=== PATIENT | female | born 1985 | race Caucasian/White ===

== ENCOUNTER 2023-02-02 14:06 | Outpatient (AMB) | payer OTHER, SELFPAY ==
--- NOTE | 2023-02-02 14:28 | HO.SPINEOV ---
Intake Intake Visit Reasons: Low back pain Intake Note: Ms. Juan is here today c/o recurrent low back pain. (previous pt.) MRI done @ [facility]. Autism Motor Specialist Required: No Assessment & Plan Assessment & Plan (1) Lumbar back pain with radiculopathy affecting left lower extremity: Code(s): M54.16 - Radiculopathy, lumbar region Plan: Dear colleague Thank you for referring Kathryn Man to the office today with a chief complaint of left-sided back pain radiating down her left leg. HPI: This 37-year-old female who has an extensive spinal history. She underwent 2 microdiskectomies followed by a transforaminal lumbar interbody fusion on 08/23/2018 for recurrent herniated discs and left lumbar radiculopathy. She was doing very well but developed progressive left-sided back pain towards the left leg during her . Currently, she has a constant left-sided low back pain with episodes of unprovoked aggravated symptoms. The pain radiates to the posterior thigh calf and into her foot. The right side is unaffected. She also noticed swelling of her left foot. She denies weakness. Chiropractic therapy will alleviate the symptoms for short period of time PMH: Unremarkable Medications: Topiramate, Prozac, multivitamins Allergies: Penicillin Social history: , works from home. Nonsmoker Physical Exam: Pleasant female in distress due to her current situation. Straight leg raise produces pain on the left side of her back. Motor exam is unremarkable. Sensory exam shows no deficits. On inspection of the bilateral feet there is mild swelling of the left foot. Radiological Studies: MRI done at [facility] on 01/20/2023 show status post L4-5 lumbar fusion. Slightly progressive adjacent degenerative disc disease with moderate spinal stenosis and a stable L5-S1 central disc bulge touching the left S1 nerve root. Impression/Plan: This patient is suffering from predominantly left-sided back pain radiating in an S1 distribution into the left leg. I will refer her to for a left S1 diagnostic nerve block. If this alleviates her symptoms then I would propose to do a decompression of the left S1 nerve root. If the injection is negative, then I would like further testing in the form of a CT of the lumbar spine to assess her previous fusion and dynamic x-rays to exclude instability of the L3-4 level. Thank you for allowing me to participate in your patients care. total time spent was 50 minutes in counseling ,coordination of plan, personal review of imaging, surgical decision making and subsequent plan Rakan Lange MD, PhD Spine Fellowship Trained Neurosurgeon Director, [facility] Orders: Referrals Physiatry Referral M54.16 - Radiculopathy, lumbar region Coding Level of Care Code New Pt Level 4 (54577) Diagnoses Lumbar back pain with radiculopathy affecting left lower extremity M54.16
== END 2023-02-02 15:25 | disposition home or self-care (01) ==
PROVIDERS: PCP Internal Medicine; Visit Provider Neurological Surgery
DX: M54.16 Radiculopathy, lumbar region (principal)
CPT/HCPCS: 99204

== ENCOUNTER → 2023-02-02 14:06 | Outpatient (BNVA) | payer OTHER, SELFPAY | PROVIDERS: PCP Internal Medicine; Visit Provider Neurological Surgery | DX: M54.16 Radiculopathy, lumbar region (principal) | CPT/HCPCS: 99202 ==

== ENCOUNTER 2024-10-31 15:45 | Outpatient (AMB) | payer OTHER, SELFPAY ==
--- OUTSIDE RECORDS SUMMARY | 2024-07-05 06:00 | XMS_ITS ---
Author Organization [facility] Address [address] [address] Care Team Providers Care Retail Sales Merchandiser Development Name Role Phone ARMIDA SANCHEZ Unavailable [phone] REASON FOR VISIT Annual CEO Physical Encounters Encounter Location Date Provider Diagnosis [address] [address] 07/05/2024 ARMIDA SANCHEZ Encounter for gynecological examination [...] Follow Up: 1 Year, Reason: Y early Handle Sewer Exam Progress Notes * YANI BROOB:0 1985 (38 yo F)Acc No.[id number]:07/05/2024 Progress Note Patient: KATHRYN ESPARZA Provider: Amanda SANCHEZ MD :1985 A ge:38 Y S ex:Female Date:07/05/2024 Address:[address] [place] [address] Yashira Bosch [id number] Subjective: * Chief Complaints: * 1 . Annual CEO Physical. * HPI: C onstitutional: Kathryn is a 38yo GxPx with LMP x/x/x who presents for her yearly chip person annual exam. She is new to this practice, having received previous chip person care . She has been in state [...] days/week by . * ROS: A nnual Handle Sewer Exam ROS: Bowel habit changes d enies. [...] i n no acute distress,well developed, well nourished,rivet passer present in room. HEAD: n ormocephalic, atraumatic. [...] * Follow Up: 1 Year (Reason: Yearly Handle Sewer Exam) * Images: Billing Information: * Visit Code: 31710 Preventive Care New Pt. Age 18-39. * Procedure Codes: * Electronic signature of ARMIDA SANCHEZ MD on 10/31/2024 at 04:53 PM EDT Sign off status: Pending * Provider: Amanda SANCHEZ MD Date: 07/05/2024 Generated for Dre victor/Yamile/Vandanaitting on: 0 10/31/2024 04:53 PM EDT History and Physical Notes * HPI (History of Present Illness) Category Sub-Category Detail Notes Category Not es Constitutional Kathryn is a 38yo GxPx with LMP x/x/x who presents for her yearly chip person annual exam. She is new to this practice, having received previous chip person care . She has been in state [...] ac mendy distress, well developed, well nourished, rivet passer present in room HEAD: normocephalic, atrau matic [...]
--- NOTE | 2024-10-31 15:55 | MHC.OFFVIS ---
Intake Visit Reasons: 6 Months/ Migrane Allergies Penicillins Allergy (Unknown, Verified 10/24/24 08:36) Unknown HPI Comments Details: The patient is a 38-year-old female presenting with migraine and menstrual migraine. She reports experiencing persistent migraines for at least two weeks each month, noting variability in intensity. Currently on Topamax, the patient describes partial relief, while certain medications like sumatriptan have intensified symptoms. Menstrual migraines have been a significant concern, compounded by hormonal changes leading to night sweats and mood fluctuations. Caffeine provides partial symptomatic relief for her headaches. Historical treatments, including various injections, weren't clearly effective and specifics were not provided. The patient remains hopeful for future symptom improvement with different management strategies. [facility] Medical History (Updated 10/31/24 @ 15:57 by Nilda Kaplan MD) Carpal tunnel syndrome Carpal tunnel syndrome, bilateral upper limbs Migraine without aura Review of Systems Const Details: - Neurological: Reports frequent migraines and menstrual migraines; denies efficacy of certain triptans. - Endocrine: Reports night sweats and hot flashes. - Psychiatric: Reports mood swings. - Others: Denies any other symptoms that were not mentioned in the conversation. Physical Exam Neuro Other: Mental Status: Alert and oriented to person, place, and time. Normal attention. Normal spontaneous speech, fluency, and comprehension. No obvious issues with mood and memory. Affect is appropriate. Cranial Nerves: CN II: Visual almendarez full to confrontation, visual acuity intact. CN III, IV, : Pupils equal, round, reactive to light and accommodation. Extraocular movements are normal. CN V: Facial sensation is normal. CN VII: Facial movements symmetrical. CN VIII: Hearing intact to bedside conversation is normal. CN IX, X: Palate elevates symmetrically. CN XI: Shoulder shrug and head turn symmetrical. CN XII: Tongue midline without atrophy or fasciculations. Extrapyramidal: Full facial expressions and blinking. No rigidity. Movements are appropriate with no tremor or abnormality. Speech: Normal; no dysarthria or tremor. Assessment & Plan Assessment & Plan (1) Chronic migraine w/o aura w/o status migrainosus, not intractable: Comment: Meds tried: Topamax, Amitriptyline. Naratriptan, Sumatriptan, Propranolol and Verapamil cannot be given due to low BP, gabapentin, MRI LS spine at [facility] in Dec 2018: mild L5/S1 central disc bulge with mild left foraminal stenosis, s/p hardware. Code(s): G43.709 - Chronic migraine without aura, not intractable, without status migrainosus Category: Medical Plan: I discussed with the patient the likely diagnoses of migraine and menstrual migraine, emphasizing management strategies. The option of Nurtec for acute management was highlighted because of its low side effect risk. The patient's history of adverse responses to sumatriptan and eletriptan informed the avoidance of these in future treatment plans. We discussed hormonal influences aggravating menstrual migraines and acknowledged past ineffective treatments for her associated symptoms. The benefits of potential new management approaches, including the introduction of a headache clinic helmed by a specialist, were considered a suitable future step. Plan Impression: a: Migraine without aura b: Menstrual migraine Rec: a: Topiramate 200mg one at night b: Fiorecet 1-2 prn c: Try Nurtec 75mg one a day as needed Medications: New topiramate 200 mg PO DAILY 90 tabs 1RF rimegepant (Nurtec ODT) 75 mg PO ONCE 10 tabs 0RF Coding Level of Care Code Est Pt Level 4 (85561) Diagnoses Chronic migraine w/o aura w/o status migrainosus, not intractable G43.709
--- OUTSIDE RECORDS SUMMARY | 2024-10-31 16:53 | XMS_ITS | Clinical Summary ---
Author Organization [facility] Address [address] [place] [address] Care Team Providers Care Adult Basic Education Instructor Name Role Phone Jose M Ervin Primary Care Provider Smiley vailable Social History Tobacco Use Types Packs/Day Years Used Date Smoking Tobacco: Never Assessed Sex and Gender Information Value Date Recorded Sex Assigned at Not on file Gender Identity Not on file Sexual Orientation Not on file Plan of Treatment Health Maintenance Due Date Last Done Comments Hepatitis B Vaccines (1 of 3 - 3-dose series) 1985 Hepatitis C Screening 1985 COVID-19 Vaccine (#1) 05/04/1986 Depression Screening 1997 Preventative Health Evaluation 11/05/2003 Cervical Cancer Screening (Pap Smear) 2006 DTap / Tdap / Td (2 - Td or Tdap) 12/17/2020 12/17/2010 Influenza Vaccine (#1) 2024 3, 04/27/2010 Pneumococcal Vaccine Aged Out No long er eligible based on patient's age to complete this topic RSV Ped < 20 months Aged Out No longe r eligible based on patient's age to complete this topic Care Teams Adult Basic Education Instructor Relationship Specialty Start Date End Date Jose M Ervin PCP - General Internal Medicine 02/14/18
--- OUTSIDE RECORDS SUMMARY | 2024-10-31 16:53 | XMS_ITS | Clinical Summary ---
Author Organization [facility] Address [address] [place] [address] Care Team Providers Care Rn Production Name Role Phone Unavailable Primary Care Provider Unavailabl e Allergies Active Allergy Reactions Criticality Noted Date Comments Penicillins Swelling High 04/24/2010 Medications biotin 1 mg capsule Take by mouth. Activ e black cohosh 540 mg capsule Take by mouth. Active estradioL (ESTRACE) 0.01 % (0.1 mg/gram) vaginal cream Apply pv daily then twice wkly for maintenance Active cetirizine HCl (CETIRIZINE ORAL) Take by mouth. Activ e IBUPROFEN ORAL Take 400 mg by mouth daily as needed. Active levonorgestreL (Mirena) 21 mcg/24hr (up to 8 yrs) 52 mg IUD by Intrauterine route. Active multivitamin with minerals (CENTRUM/CERTAV IT) 18-400 mg-mcg tablet tablet Take 1 Tablet by mouth daily. Active topiramate (TOPAMAX) 100 mg tablet Take 1 tablet (100 mg total) by mouth 2 (two) times a day. Active tramadol HCl (TRAMADOL ORAL) Take 10 mg by mouth 2 times daily. Active estradioL (ESTRACE) 1 mg tabletIndicatio ns:Menopausal and female climacteric states TAKE 1 TABLET BY MOUTH EVERY DAY 90 tablet 5 Active estradioL (ESTRACE) 2 mg tablet Take 1 tablet (2 mg total) by mouth 1 (one) time each day. 90 tablet 3 5 08/03/19 26 Active sertraline (ZOLOFT) 50 mg tablet TAKE 1 TABLET BY MOUTH EVERY DAY 90 tablet 3 5 Active Active Problems Problem Noted Date Diagnosed Date AMA (advanced maternal age) multigravida 35+ Overview (05/07/2024): [place] neg Level 2 US (>35) Weekly BPP at 36 weeks Delivery at 39 weeks >/= 35 yo Lumbar herniated disc 10/21/2020 Overview (05/07/2024): L5-S1 COVID-19 virus infection 02/11/2020 Vertigo 10/12/2016 Piriformis syndrome of left side 04/05/2016 Elevated AFP 02/12/2016 Overview (05/07/2024): Growth q 4-6 weeks Weekly NST or BPP weekly at 32-34 weeks Deliver at 39 Lumbosacral ligament sprain 02/03/2016 Lumbosacral root lesion 02/03/2016 Overview (05/07/2024): 2019 Lumbar spine fusion surgery, status post 2/3 anesthesia consult - RECOMMEND SCHEDULED DELIVERY (MD Michelle)- still can do spinal per anesthesia- being scheduled. 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 Colles' fracture 06/06/2013 Migraine 04/25/2012 Thyroid nodule 08/17/2010 Overview (05/07/2024): TSH ordered in 1st trimeter Tsh orderd 2nd trim 01/13/16 Encounters Date Type Department Care Team Description 08/13/2024 7:23 AM EDT - 08/13/2024 11:59 PM EDT [facility] at [address] [address] Encounter for screening mammogram for high-risk patient Discharge Disposition: Home or Self Care 08/03/2024 Telephone Obstetrics and Gynecology [place] [address] [place] [address] Sendy Tidwell, SOSA 08/02/2024 3:00 PM EDT Office Visit Obstetrics and Gynecology [address] [address] Sendy Tidwell CNM Women's annual routine gynecological examination (Primary Dx); Venereal disease screening; Encounter for screening for viral disease; Hot flashes; IUD check up from Last 3 Months Immunizations Name Administration Dates Next Due Influenza Quadravalent, MDCK , 0.5ml, preservative free (Flucelvax) 6mo and older 11/19/2020 Influenza trivalent, 0.5mL, preservative free (Fluarix; FluLaval; Fluzone) ages 6mo and older (Afluria) 3 years and older 12/15/2015,12/02/2012,04/27/2010 Influenza, Unspecified 11/11/2016,11/28/2013 Pfizer SARS-CoV-2 COVID-19, mRNA, LNP-S, preservative free 02/15/2021,07/15/2020,06/24/2020 Tdap Tetanus diptheria acell ular pertussis (Boostrix; Adacel) 7yo and older 12/17/2010 Surgical History Surgery Date Site/Laterality Comments OTHER SURGICAL HISTORY PROCEDURE: MI TONSILLECTOMY & ADENOIDECTOMY AGE 12/> BREAST LUMPECTOMY 12/23/14 Right PROCEDURE: HISTORICAL BREAST LUMPECTOMY; COMMENT: fibroadenoma OTHER SURGICAL HISTORY 02/24/2018 PROCEDURE: [place] LAMOT PRTL FFD EXC DISC REEXPL 1 NTRSPC LUMBAR; COMMENT: lumbar laminotomy and microdiskectomy LUMBAR LAMINECTOMY 05/2018 PROCEDURE: HISTORICAL LUMB LAMINECTOMY; COMMENT: lumbar laminotomy and disckectomy Medical History Medical History Date Comments Thyroid nodule 08/17/2010 DX:Thyroid nodul e Lumbar herniated disc 10/21/2020 DX:Lumbar herniated disc; COMMENT: L5-S1 DVT (deep vein thrombosis) i n 2016 DX:DVT (deep vein thrombosis ) in Migraine with aura DX:Migraine w ith aura Family History Medical History Relation Name Comments Other: smoker Father Heart attack Maternal Grandfather Diabetes Maternal Grandmother Other: foot problems Mother Blindness Neg Hx Breast cancer Neg Hx Cataracts Neg Hx Colon cancer Neg Hx Glaucoma Neg Hx Macular degeneration Neg Hx Strabismus Neg Hx Relation Name Status Comments Father Maternal Grandfather Maternal Grandmother Mother Social History Tobacco Use Types Packs/Day Years Used Date Smoking Tobacco: Former Cigarettes Q uit: 03/27/2012 Smokeless Tobacco: Never Alcohol Use Standard Drinks/Week Comments Not Currently 0 (1 standard drink = 0.6 oz pur e alcohol) Housing Instability Answer Date Recorde d Are you worried that in the next 2 months you may not have stable housing? No 08/02/2024 Food Access & Nutrition Answer Date Rec orded Do you have access to a vari ety of food including fruits and vegetables? Yes 08/02/2024 Access to Healthcare Answer Date Record ed Within the last 3 months, ho w many times did you visit the emergency department for your medical care? 0 08/02/2024 Health Literacy Answer Date Recorded How often do you need to hav e someone help you when you read instructions, pamphlets, or other written material from your doctor or pharmacy? Never 08/02/2024 Caregiver: How often do you need to have someone help you when you read instructions, pamphlets, or other written material from your doctor or pharmacy? Not on file 08/02/2024 Financial Risk Answer Date Recorded How hard is it for you to pa y for the very basics like food, housing, medical care, and air conditioning / heating? Patient declined 08/02/2024 Transportation Answer Date Recorded Has the lack of transportati on kept you from meetings, work, or from getting things needed for daily living? No Has the lack of transportati on kept you from medical appointments or from getting medications? No 08/02/2024 Social Isolation Answer Date Recorded How often do you feel lonely or isolated from those around you? Sometimes 08/02/2024 Food Risk Answer Date Recorded Within the past 12 months we worried whether our food would run out before we got money to buy more. Patient declined 025 Within the past 12 months th e food we bought just didn't last and we didn't have money to get more. Patient declined 07/06 Dependent Care Answer Date Recorded Do you need help finding or paying for care for your loved ones. For example, child welfare worker or elderly care for an older adult? No 08/02/2024 Education Answer Date Recorded Do you think completing more education or training, like finishing a GED, going to college, or learning a trade, would be helpful for you? N/A 08/02/2024 Employment and Income Answer Date Recor ded During the last four weeks, have you been actively looking for work? Patient declined 08/02/2024 Living Situation Answer Date Recorded What is your living situation? 0 08/02/2024 Comments No Sex and Gender Information Value Date Recorded Sex Assigned at Female 11/28/2019 8:42 AM EDT Legal Sex Female 8:32 AM EDT Gender Identity Female 11/28/2019 8:42 AM EDT Sexual Orientation Not on file Obstetrics History Para Term AB IAB SAB Ectopic Multiple Livin g Live Births 3 3 3 2 3 Date Outcome GA Total Labor Labor/2nd/3rd Weight Sex Type Anes PTL Elisabet A1 A5 Name Clin 2010 Term 40w 6d 6h 50m/ 3771 g (133 oz) M Vag-S pont Epidur al Livin g 8 9 Caroly n Delivery Location:[facility] Comments:bilat labial lacereation, cord x1 loose 2016 Term 38w 3d 3771 g (133 oz) Sudha Complications:Deep vein thro mbosis (DVT), antepartum Delivery Location:[facility] Comments:System Genera suzan. Please review and update details. 2021 Term 39w 1d 4350 g (153.4 oz) M CS-LT ranv Livin g Dr Avila iner Comments:pcs- due to s sebastian fusion history Last Filed Vital Signs Vital Sign Reading Time Taken Comments Blood Pressure 102/70 08/02/2024 2:55 PM EDT Pulse 65 08/02/2024 2:55 PM EDT Temperature - - Respiratory Rate - - Oxygen Saturation - - Inhaled Oxygen Concentration - - Weight 104 kg (229 lb) 08/13/2024 7:35 AM EDT Height 165.1 cm (5' 5 ) 08/13/2024 7:35 AM EDT Body Mass Index 38.11 08/13/2024 7:35 AM EDT Plan of Treatment Health Maintenance Due Date Last Done Comments Hepatitis B Vaccines (1 of 3 - 19+ 3-dose series) 2004 Pneumococcal Vaccine: Pediatrics (0 to 5 Years) and At-Risk Patients (6 to 49 Years) (2 of 2 - PCV) 11/14/2013 11/14/2012 COVID-19 Vaccine (5 - Pfizer risk season) 2024 12/08/2023, 02/15/2021, 07/15/2020, Additional history exists Influenza Vaccine (#1) 2024 , 11/23/2022, 12/07/2021, Additional history exists Cervical Cancer Screening: HPV 04/10/2025 04/10/2020 Social Influencers of Health Screening 08/02/2025 08/02/2024 DTaP,Tdap,and Td Vaccines (3 - Td or Tdap) 11/06/2028 11/06/2018, 12/17/2010 Depression Screening Completed 08/02/2024, 07/16/19 24 HIV Screening Completed 08/02/2024, 10/21/2020 Hepatitis C Screening Completed 08/02/2024, 021 HIB Vaccines Aged Out No longer eligi ble based on patient's age to complete this topic HPV Vaccines Aged Out No longer eligi ble based on patient's age to complete this topic Hepatitis A Vaccines Aged Out No long er eligible based on patient's age to complete this topic IPV Vaccines Aged Out No longer eligi ble based on patient's age to complete this topic MMR Vaccines Aged Out No longer eligi ble based on patient's age to complete this topic Meningococcal ACWY Vaccine Aged Out N o longer eligible based on patient's age to complete this topic Meningococcal B Vaccine Aged Out No l onger eligible based on patient's age to complete this topic RSV Immunization Patients Under 20 months Aged Out No longer eligible based on patient's age to complete this topic Varicella Vaccines Aged Out No longer eligible based on patient's age to complete this topic Procedures Procedure Name Priority Date/Time Associated Diagnosis Comments MG MAMMO DIGITAL SCREENING W [place] BILAT Routine 08/13/2024 7:43 AM EDT Encounter for screening mammogram for high-risk patient TREPONEMA PALLIDUM ANTIBODY WITH REFLEX TO RPR AND PARTICLE AGGLUTINATION Routine 08/02/2024 3:28 PM EDT Venereal disease screening HIV 1, 2 ANTIBODY, P24 ANTIGEN WITH REFLEX TO DIFFERENTIATION Routine 08/02/2024 3:28 PM EDT Encounter for screening for viral disease HEPATITIS C ANTIBODY Routine 08/02/2024 3:28 PM EDT Encounter for screening for viral disease CHLAMYDIA TRACHOMATIS AND NEISSERIA GONORRHOEAE PCR Routine 08/02/2024 3:17 PM EDT Venereal disease screening HM DEPRESSION SCREENING Routine 07/16/2023 HM HPV Routine 04/10/2020 from Last 3 Months or Most Recently Relevant to Health Maintenance Results * MG Mammo Digital Screening w [place] bilat (08/13/2024 7:43 AM EDT) Anatomical Region Laterality Modality Breast Bilateral Mammography 08/13/2024 9:04 AM EDT Impressions 08/13/2024 9:53 AM EDT No definite mammographic evidence of malignancy. These initial screening mammogram images can be used as a reference for comparison with subsequent screening in one year. A negative mammogram in the presence of a clinically suspicious palpable abnormality does not preclude the possibility of malignancy or alter the indications for biopsy. ASSESSMENT: BI-RADS 2: BENIGN RECOMMENDATION(S): 1: Routine screening mammogram BILATERAL in 1 year. [facility] location[facility] at [address], [address] -------- FINAL REPORT -------- Dictated By: Hector Nelson Dictated Date: 08/13/2024 09:04 ET Assigned Physician: Hector Nelson Reviewed and Electronically Signed By: Hector Nelson Signed Date: 08/13/2024 09:53 ET Workstation ID: [id number] Transcribed By: Self Edit Transcribed Date: 08/13/2024 09:40 ET Narrative 08/13/2024 9:53 AM EDT EXAM: SCREENING MAMMOGRAPHY, BILATERAL HISTORY: SCREENING. Scar marker lower outer right areolar margin for reported surgery which yielded fibroadenoma December 2014 COMPARISON: Initial exam TECHNIQUE: Synthesized CC and MLO projections of each breast. Tomosynthesis of each breast in the CC and MLO projections. ADDITIONAL IMAGING: None Computer-aided detection was employed with the [employer] Memolane AI 3-D. TISSUE DENSITY: There are scattered areas of fibroglandular density. (BI-RADS category B) FINDINGS: RIGHT BREAST: No suspicious mass. No suspicious calcifications. Findings consistent with prior right breast surgery. These images can be used as a reference for subsequent screening. LEFT BREAST: No suspicious mass. No suspicious calcification. No distortion. No additional suspicious left breast findings Procedure Note Hector Nelson MD - 08/13/2024 EXAM: SCREENING MAMMOGRAPHY, BILATERAL HISTORY: SCREENING. Scar marker lower outer right areolar margin forreported surgery which yielded fibroadenoma December 2014 COMPARISON: Initial exam TECHNIQUE: Synthesized CC and MLO projections of each breast.Tomosynthesis of each breast in the CC and MLO projections. ADDITIONAL IMAGING: None Computer-aided detection was employed with the VM[employer] AI 3-D. TISSUE DENSITY: There are scattered areas of fibroglandular density.(BI-RADS category B) FINDINGS: RIGHT BREAST: No suspicious mass. No suspicious calcifications. Findings consistentwith prior right breast surgery. These images can be used as a referencefor subsequent screening. LEFT BREAST: No suspicious mass. No suspicious calcification. No distortion. Noadditional suspicious left breast findings IMPRESSION: No definite mammographic evidence of malignancy. These initial screening mammogram images can be used as a reference forcomparison with subsequent screening in one year. A negative mammogram in the presence of a clinically suspicious palpableabnormality does not preclude the possibility of malignancy or alter theindications for biopsy. ASSESSMENT: BI-RADS 2: BENIGN RECOMMENDATION(S): 1: Routine screening mammogram BILATERAL in 1 year. [facility] location[facility] at [address], [address] -------- FINAL REPORT -------- Dictated By: Hector Nelson Dictated Date: 08/13/2024 09:04 ET Assigned Physician: Hector Nelson Reviewed and Electronically Signed By: Hector Nelson Signed Date: 08/13/2024 09:53 ET Workstation ID: [id number] Transcribed By: Self Edit Transcribed Date: 08/13/2024 09:40 ET Sendy Tidwell [facility] IMG BI PROCEDURES Final Resul t * Hepatitis C antibody (08/02/2024 3:28 PM EDT) Hepatitis C Antibody Negative Negative LAB CHEMISTRY METHOD 08/02/2024 7:20 PM EDT [facility] Blood Venous blood specimen / Unknown Venipuncture / Unknown 08/02/2024 3:28 PM EDT 08/02/2024 3:31 PM EDT [facility] BLOOD ORDERABLES Final Re sult Performing Organization Address [facility] de Phone Number [facility] [address] [place] [address], [place] [phone] * HIV 1,2 antibody, p24 antigen with reflex to differentiation (08/02/2024 3:28 PM EDT) Pathologist [facility] HIV Combo AB/AG Negative Negative LAB CHEMISTRY METHOD 08/02/2024 8:30 PM EDT [facility] Blood Venous blood specimen / Unknown Venipuncture / Unknown 08/02/2024 3:28 PM EDT 08/02/2024 3:31 PM EDT Narrative [facility] - 08/02/2024 8:30 PM EDT This assay is a 4th generation assay allowing for earlier detection of HIV infection by detecting the presence of the HIV-1 p24 antigen as well as the traditional antibodies to HIV type 1 (including group O) and type 2. Use of a 4th generation assay is the current CDC recommendation for HIV screening. [facility] BLOOD ORDERABLES Final Re sult Performing Organization Address [facility] Co de Phone Number [facility] [address] [place] [address], [place] [phone] * Treponema pallidum antibody with reflex to RPR and particle agglutination (08/02/2024 3:28 PM EDT) [facility] T. Pallidum Antibodies Negative Negative LAB CHEMISTRY METHOD 08/02/2024 9:33 PM EDT [facility] Blood Venous blood specimen / Unknown Venipuncture / Unknown 08/02/2024 3:28 PM EDT 08/02/2024 3:31 PM EDT Sendy RDZ LAB BLOOD ORDERABLES Final Re sult [facility] [address] [place] [address], [place] [phone] * Chlamydia trachomatis and Neisseria gonorrhoeae molecular study (08/02/2024 3:17 PM EDT) [facility] Neisseria gonorrhoeae PCR Negative Negative LAB MOLECULAR DIAGNOSTICS METHOD 08/03/2024 11:33 AM EDT [facility] Chlamydia trachomatis PCR Negative Negative LAB MOLECULAR DIAGNOSTICS METHOD 08/03/2024 11:33 AM EDT [facility] Swab Vaginal structure / Unknown Non-blood Collection / Unknown 08/02/2024 3:17 PM EDT 08/02/2024 3:18 PM EDT Sendy Tidwell [facility] MICROBIOLOGY - GENERAL OR DERABLES Final Result [facility] [address] [place] [address], [place] [phone] * Depression Screening (07/16/2023) Health system Depression Screening abstracted Historical Provider HEALTH MAINTENANCE Final Result * Cervical Cancer Screening: HPV (04/10/2020) Health system Cervical Cancer Screening: HPV negative, abstracted us Historical Provider HEALTH MAINTENANCE Final Result from Last 3 Months or Most Recently Relevant to Health Maintenance Insurance [employer] [place]
--- OUTSIDE RECORDS SUMMARY | 2024-10-31 16:53 | XMS_ITS | Patient Health Record ---
Author Organization [facility] Address [address] [place] [address] Care Team Providers Care Director Of Parks And Recreation Name Role Phone SANCHEZARMIDA CAMPUZANO Unavailable [phone] Reason For Referral No Information Plan Of Treatment No Information Insurance Providers Payer Name Payer Address Payer Phone Subscriber Number Group Number Insured Name Patient Relationship to Insured Coverage Start Date Coverage End Date [facility] [address] [address] [place] [address] IVETH BRO Self - patient is the insured
== END 2024-10-31 16:10 | disposition home or self-care (01) ==
LOC: HO.HSM 15:45
PROVIDERS: PCP Internal Medicine; Referring Provider Internal Medicine; Visit Provider Psychiatry & Neurology Neurology
DX: G43.709 Chronic migraine without aura, not intractable, without status migrainosus (principal)
CPT/HCPCS: 99214

== ENCOUNTER → 2024-10-31 15:45 | Outpatient (BNVA) | payer OTHER, SELFPAY | PROVIDERS: PCP Internal Medicine; Referring Provider Internal Medicine; Visit Provider Psychiatry & Neurology Neurology | DX: G43.709 Chronic migraine without aura, not intractable, without status migrainosus (principal); G43.829 Menstrual migraine, not intractable, without status migrainosus | CPT/HCPCS: 99212 ==

== ENCOUNTER 2025-01-07 12:39 | Outpatient (REF) | payer OTHER, MEDICAID, SELFPAY | END 2025-01-07 12:40 | disposition home or self-care (01) | LOC: HO.LAB 12:39 | PROVIDERS: PCP Internal Medicine; Visit Provider Nurse Practitioner | DX: G43.709 Chronic migraine without aura, not intractable, without status migrainosus (principal); R61 Generalized hyperhidrosis | CPT/HCPCS: 36415; 84443 ==

== ENCOUNTER 2025-01-07 12:39 | Outpatient (AMB) | payer OTHER, MEDICAID, SELFPAY ==
--- OUTSIDE RECORDS SUMMARY | 2024-07-05 05:00 | XMS_ITS ---
Author Organization [facility] Address [address] [address] Care Team Providers Care Forklift Picker Name Role Phone ARMIDA SANCHEZ Unavailable [phone] REASON FOR VISIT Annual ACTIVITY AIDE Physical Encounters Encounter Location Date Provider Diagnosis [address] [address] 07/05/2024 ARMIDA SANCHEZ Encounter for gynecological examination (general) (routine) without abnormal findings Z01.419 and Encounter for screening for infections with a predominantly sexual mode of transmission Z11.3 Assessments Encounter Date Diagnosis (ICD Code) Assessment Notes Treatment Notes Treatment Clinical Notes Section Notes 07/05/2024 Encounter for gynecological examination (general) (routine) without abnormal findings (ICD-10 - Z01.419) During the visit, the following areas of concern were addressed: Discussed cervical cancer screening with either cytology alone every 3 years or high risk HPV co-testing every 5 years as per ASCCP guidelines. Advised continued annual pelvic exams. Patient encouraged to increase her level of exercise. SBE technique encouraged/tau ght. 07/05/2024 Encounter for screening for infections with a predominantly sexual mode of transmission (ICD-10 - Z11.3) Plan Of Treatment Treatment Notes Assessment Notes Encounter for gynecological examination (general) (routine) without abnormal findings During the visit, the following areas of concern were addressed: Discussed cervical cancer screening with either cytology alone every 3 years or high risk HPV co-testing every 5 years as per ASCCP guidelines. Advised continued annual pelvic exams. Patient encouraged to increase her level of exercise. SBE technique encouraged/taught. Next Appt Details Follow Up: 1 Year, Reason: Y early Basin Operator Exam Progress Notes * YANI BROOB:0 1985 (39 yo F)Acc No.[id number]:07/05/2024 Progress Note Patient: KATHRYN ESPARZA Provider: Amanda SANCHEZ MD :1985 A ge:38 Y S ex:Female Date:07/05/2024 Address:[address] [place] [address] Yashira Bosch [id number] Subjective: * Chief Complaints: * 1 . Annual ACTIVITY AIDE Physical. 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 She is new to this practice, having received previous sap data analyst care . She has been in state of health since her last exam. She has the following concerns: . She has received the Covid-19 vaccine. Relationship status: for years. She is sexually active. Sexual partner(s): . She does wish to have STI testing. Menses: Contraception: The patient has had an abnormal pap smear within the last 5 years. Her most recent pap smear was . The patient does exercise. She exercises x days/week by . * ROS: A nnual Basin Operator Exam ROS: Bowel habit changes d enies. B ladder symptoms d enies. V aginal discharge, unusual d enies. V aginal itch or odor d enies. w eight or appetite changes d enies. C hest pains, SOB d enies. d epression d enies.? B reast: Denies B reast lump. D enies N ipple discharge.? H ematology: Denies S wollen glands. S kin: Patient complaining of c hanging moles. P sychiatric: Denies A nxiety. * Medical History: Objective: * Vitals: * Examination: G eneral Examination: GENERAL APPEARANCE: i n no acute distress,well developed, well nourished,charging machine operator present in room. HEAD: n ormocephalic, atraumatic. NECK/THYROID: n feliciano supple, full range of motion,thyroid normal. LYMPH NODES: n o axillary or supraclavicular adenopathy.? SKIN: n ormal,good turgor,no rashes,no suspicious lesions.? BREASTS: n ormal,no dimpling,no discharge,no drainage,no masses palpable bilaterally,nontender. ABDOMEN: s oft, non-tender, non distended without masses or hepatosplenomegay. BACK: n o costovertebral angle tenderness. FEMALE GENITOURINARY: V ulva without lesions or masses, vagina pink without abnormal discharge, lesions or masses, cervix appears normal and is not tender to palpation, uterus is normal size, mobile, nontender and anteverted, ovaries are not palpable. NEUROLOGIC: a lert and oriented,gait normal. PSYCH: a lert, oriented,cognitive function intact,cooperative with exam,good eye contact,mood/affect full range,speech clear. Assessment: * Assessment: 1. E ncounter for gynecological examination (general) (routine) without abnormal findings - Z01.419 (Primary) 2 . E ncounter for screening for infections with a predominantly sexual mode of transmission - Z11.3 Plan: * Treatment: * Follow Up: 1 Year (Reason: Yearly Basin Operator Exam) * Images: Billing Information: * Visit Code: 91737 Preventive Care New Pt. Age 18-39. 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 She is new to this practice, having received previous sap data analyst care . She has been in state of health since her last exam. She has the following concerns: . She has received the Covid-19 vaccine. Relationship status: for years. She is sexually active. Sexual partner(s): . She does wish to have STI testing. Menses: Contraception: The patient has had an abnormal pap smear within the last 5 years. Her most recent pap smear was . The patient does exercise. She exercises x days/week by . Examination Category Sub-Category Detail Notes Category Not es General Examination GENERAL APPEARANCE: in no ac mendy distress, well developed, well nourished, charging machine operator present in room HEAD: normocephalic, atrau matic NECK/THYROID: neck supple, full ra nge of motion, thyroid normal ABDOMEN: soft, non-tender, no n distended without masses or hepatosplenomegay NEUROLOGIC: alert and oriented, gait normal SKIN: normal, good turgor, no rashes, no suspicious lesions BACK: no costovertebral an gle tenderness BREASTS: normal, no dimpling, no discharge, no drainage, no masses palpable bilaterally, nontender LYMPH NODES: no axillary or supra clavicular adenopathy PSYCH: alert, oriented, cog nitive function intact, cooperative with exam, good eye contact, mood/affect full range, speech clear FEMALE GENITOURINARY: Vulva without lesi ons or masses, vagina pink without abnormal discharge, lesions or masses, cervix appears normal and is not tender to palpation, uterus is normal size, mobile, nontender and anteverted, ovaries are not palpable
[2025-01-07 12:49] VITALS: BP 112/70; PULSE 80; RESP 16; O2SAT 99; BMI 36.6
--- NOTE | 2025-01-07 12:49 | A.OFFVIS_ITS ---
Vital Signs 01/07/25 12:49 Height 5 ft 5 in Weight 220 lb BMI 36.6 BP 112/70 Blood Pressure Location Rt brachial Position Sitting Respiration 16 Pulse 80 Pulse Source Pulse Oximeter Pulse Oximetry (%) 99 Oxygen Delivery Method Room Air Intake Visit Reasons: Constant migrane Group Fitness Assistant Department Head Required: No Allergies Penicillins Allergy (Unknown, Verified 01/07/25 12:50) Unknown HPI Comments Details: Kathryn is a 39-year-old female patient presenting today for a follow up visit for migraine and menstrual migraines. According to last office notes from Dr. Kaplan from October of 2024, she was experiencing migraines for at least 2 weeks out of the month and could be relatively persistent for a week or so with variability in intensity. Menstrual migraines were also discussed including night sweats and mood fluctuations. Caffeine was providing some benefit and she was taking topiramate for preventive measures. At time of last visit she was continued on topiramate 200 mg at night and Nurtec 75 mg as needed. She also has a prescription for Fioricet as needed. She tells me today that she feels that her migraines are becoming more and more severe over the course of the last few years. She has profound light and sound sensitivity as well as nausea, blurred vision, and light headedness. They can be very debilitating and can make it nearly impossible to carry out her ADLs. Her migraines are occurring lest 15 days per month and can last up to 4 days in a row. Walking or any activity can severely worsen her headache when she has a migraine. She sometimes sees sparkles in her vision before getting a migraine but also can be during the migraine episode. More recently she has also noted that her scalp even feels tender to touch all over. She has been hydrating well though when her pain is severe she has no desire to eat or drink. Last eye exam: February 2024- no changes in vision since this time Now on HRT for menopause symptoms - Has been on estradiol po for the past 6 months or so and during this time her migraines have worsened, Past medication trials: Topiramate Amitriptyline Gabapentin (Propranolol and verapamil avoided due to low blood pressures) Naratriptan Sumatriptan [facility] Medical History (Updated 01/07/25 @ 13:32 by Marah Ryder CNP) Carpal tunnel syndrome Carpal tunnel syndrome, bilateral upper limbs Migraine without aura Review of Systems Const All systems reviewed & are unremarkable except as noted in HPI and below Physical Exam Vital Signs: Last Vital Signs Pulse 80 01/07/25 12:49 Resp 16 01/07/25 12:49 BP 112/70 01/07/25 12:49 Pulse Ox 99 01/07/25 12:49 Oxygen Delivery Method Room Air 01/07/25 12:49 BMI result Body Mass Index 36.6 Const General: cooperative, healthy appearing, comfortable and no acute distress Nutritional Appearance: well nourished Orientation/consciousness: patient oriented x3 Limitations: no limitations HEENT Head: Yes normal to inspection and Yes normocephalic Eyes General: appearance normal, both eyes and all related structures Visual Almendarez: normal visual almendarez by confrontation Alignment and Position: alignment normal Periorbital: periorbital findings normal Eyelids: Yes eyelids normal Conjunctivae: conjunctivae normal Sclerae: sclerae normal Neuro General: patient oriented x3 Cranial nerves: Yes CN's II-XII intact bilaterally Cognition (Neuro): normal cognition Gait exam (Neuro): Normal gait present Motor exam (neuro): no tremor noted Romberg Test: Negative Pupils: Normal pupillary reactivity/response: bilateral Psych Appearance: grossly normal Mental Status: mental status grossly normal Speech and movement: Normal speech and movement present and Clear speech present Affect: normal affect Attitude: cooperative Thought process: Normal thought process present Thought content: Normal thought content present Insight: Good insight present (Psych) Judgement: Good judgement present (Psych) Assessment & Plan Assessment & Plan (1) Chronic migraine w/o aura w/o status migrainosus, not intractable: Comment: Meds tried: Topamax, Amitriptyline. Naratriptan, Sumatriptan, Propranolol and Verapamil cannot be given due to low BP, gabapentin, MRI [facility] spine at [facility] in Dec 2018: mild L5/S1 central disc bulge with mild left foraminal stenosis, s/p hardware. Code(s): G43.709 - Chronic migraine without aura, not intractable, without status migrainosus Category: Medical (2) Night sweats: Code(s): R61 - Generalized hyperhidrosis Category: Medical Plan Kathryn is a 39-year-old female patient presenting today for a follow up visit for migraine and menstrual migraines. Migraines have recently escalated and she is now experiencing at least 15 migraine days per month or more many of which will last for days several days (up to 4 days) at a time. She has used topiramate in the past with some success however this seemingly has been less effective. I would like to start her on a trial of Emgality once monthly starting with a loading dose of 240 mg and then 120 mg monthly. I did provide her with a trial of Ubrelvy 100 mg in office today provided that she did have an acute headache which started this morning. Unfortunately, we are administering several hours after migraine onset making the above only less likely to be significantly effective. She also notes that she has been having hot flashes for which she has been given estradiol. It is unclear whether or not the estradiol really makes a huge difference and she is also on black cohosh which she feels has not made much of a difference at all. I am concerned that the estradiol maybe escalating her migraines. The patient also notes that she does not have any family history of early onset menopause and she does not believe that she has had her thyroid tested recently. I will send for a TSH level. I also discussed that she should have a formal eye exam though there was no red flags for IIH specifically. She does believe that she has not upcoming eye exam within the next month or so. - Ubrelvy 100mg sample given in office today -she will let me know if this works and if we want to prescribe (1 box with tablet. Lot [id number]. [id number] expiration ) - Start a trial of Emgality - Discuss HRT and its role in migraine at upcoming VENDING SUPERVISOR visit which is scheduled for 01/25/2025 -TSH Orders: Orders TSH reflex Free T4 Today G43.709 - Chronic migraine without aura, not intractable, without status migrainosus, R61 - Generalized hyperhidrosis Medications: New galcanezumab-gnlm (Emgality Pen) Loading dose 240 mg (2 mL) subcut ONCE 2 mL 0RF galcanezumab-gnlm (Emgality Pen) 120 mg subcut QMONTH 1 mL 4RF Discontinued rimegepant (Nurtec ODT) Discontinued Reason: Doctor's Order 75 mg PO ONCE 10 tabs 0RF Coding Level of Care Code Est Pt Level 4 (46987) Diagnoses Chronic migraine w/o aura w/o status migrainosus, not intractable G43.709 Night sweats R61
--- OUTSIDE RECORDS SUMMARY | 2025-01-07 16:00 | XMS_ITS ---
Author Name [facility] Organization Unknown Care Team Organization Name Specialty Phone Email Start Date End Da te [facility] Oscar Elizabeth DO Primary Care 05/12/202210/[address] [facility] [address] Primary Care 01/12/2022 10/24/2023
--- OUTSIDE RECORDS SUMMARY | 2025-01-07 16:01 | XMS_ITS | Clinical Summary ---
Author Organization [facility] Address [address] [place] [address] Care Team Providers Care Tape Folding Machine Operator Name Role Phone Jose M Ervin Primary [...] age to complete this topic Care Teams Tape Folding Machine Operator Relationship Specialty Start Date End Date Jose M Ervin PCP - General Internal Medicine 02/14/18
--- OUTSIDE RECORDS SUMMARY | 2025-01-07 16:01 | XMS_ITS | Patient Health Record ---
Author Organization [facility] Address [address] [place] [address] Care Team Providers Care Amortization Schedule Clerk Name Role Phone SANCHEZ ARMIDA Unavailable [phone] Reason For Referral No Information Plan Of Treatment No Information Insurance Providers Payer Name Payer Address Payer Phone Subscriber Number Group Number Insured Name Patient Relationship to Insured Coverage Start Date Coverage End Date [facility] [address] [address] [place] [address] IVETH BRO Self - patient is the insured
--- OUTSIDE RECORDS SUMMARY | 2025-01-07 16:01 | XMS_ITS | Clinical Summary ---
Author Organization [facility] Address [address] [place] [address] Care Team Providers Care Creative Art Director Name Role Phone Unavailable Primary Care Provider [...] (advanced maternal age) multigravida 35+ Overview (05/07/2024): [place] neg Level 2 US (>35) Weekly BPP [...] 1st trimeter Tsh orderd 2nd trim 01/13/16 Immunizations Immunization Administration Dates Next Due Influenza Quadravalent, MDCK , 0.5ml, preservative free (Flucelvax) 6mo and older 11/19/2020 Influenza trivalent, 0.5mL, preservative free (Fluarix; FluLaval; Fluzone) ages 6mo and older (Afluria) 3 years and older 12/15/2015,12/02/2012,04/27/2010 Influenza, Unspecified 11/11/2016,11/28/2013 Socrata SARS-CoV-2 COVID-19, mRNA, LNP-S, preservative free 02/15/2021,07/15/2020,06/24/2020 Tdap Tetanus diptheria acell ular pertussis (Boostrix; Adacel) 7yo and older 12/17/2010 Surgical History Surgery Date Site/Laterality Comments OTHER SURGICAL HISTORY PROCEDURE: WA TONSILLECTOMY & ADENOIDECTOMY AGE 12/> BREAST LUMPECTOMY 12/23/14 Right PROCEDURE: HISTORICAL BREAST LUMPECTOMY; COMMENT: fibroadenoma OTHER SURGICAL HISTORY 02/24/2018 PROCEDURE: [place] LAMOT PRTL FFD EXC DISC REEXPL 1 NTRC LUMBAR; COMMENT: lumbar laminotomy and microdiskectomy LUMBAR [...] care for your loved ones. For example, childbirth educator or elderly care for an older adult? [...] Date Recorded What is your living situation? Unrecognized valu e 08/02/2024 Comments No Sex and Gender Information [...] Livin g 8 9 Caroly n Delivery Location:[facility] Comments:bilat labial lacereation, cord x1 loose 2016 Term 38w 3d 3771 g (133 oz) Sduha Complications:Deep vein thro mbosis (DVT), antepartum Delivery Location:[facility] Comments:System Genera suzan. Please review and update details. 2021 Term 39w 1d 4350 g (153.4 oz) M CS-LT ranv Oleksandr Avila iner Comments:pcs- due to s sebastian [...] Health Maintenance Due Date Last Done Comments Pneumococcal Vaccine: Pediatrics (0 to 5 Years) and At-Risk Patients (6 to 49 Years) (2 of 2 - PCV) 11/14/2013 11/14/2012 COVID-19 Vaccine (5 - Pfizer risk season) 2024 12/08/2023, 02/15/2021, 07/15/2020, Additional history exists HPV Vaccines (2 - Risk 3-dose series) 12/19/2024 11/21/2024 Hepatitis B Vaccines (2 of 2 - CpG 2-dose series) 12/19/2024 11/21/2024 Cervical Cancer Screening: HPV 04/10/2025 04/10/2020 Social Influencers of Health Screening 08/02/2025 08/02/2024 DTaP,Tdap,and Td Vaccines (3 - Td or Tdap) 11/06/2028 11/06/2018, 12/17/2010 RSV Immunization Adult Patients (1 - 1-dose 75+ series) 2060 Depression Screening Completed 08/02/2024, 07/16/19 24 HIV Screening Completed 08/02/2024, 10/21/2020 Hepatitis C Screening Completed 08/02/2024, 021 Influenza Vaccine Completed 11/21/2024, , 11/23/2022, Additional history exists HIB Vaccines Aged Out No longer eligi [...] Procedure Name Priority Date/Time Associated Diagnosis Comments HEPATITIS C ANTIBODY Routine 08/02/2024 3:28 PM EDT Encounter for screening for viral disease HIV 1, 2 ANTIBODY, P24 ANTIGEN WITH REFLEX TO DIFFERENTIATION Routine 08/02/2024 3:28 PM EDT Encounter for screening for viral disease DEPRESSION SCREENING Routine 07/16/2023 HPV Routine 04/10/2020 from Last 3 Months or Most Recently Relevant to Health Maintenance Results * Hepatitis C antibody (08/02/2024 3:28 PM EDT) Hepatitis C Antibody Negative Negative LAB CHEMISTRY METHOD 08/02/2024 7:20 PM EDT [facility] Blood Venous blood specimen / Unknown Venipuncture / Unknown 08/02/2024 3:28 PM EDT 08/02/2024 3:31 PM EDT us [facility] LAB BLOOD ORDERABLES Final Re sult [facility] [address] [place] [address], [place] [phone] * HIV 1,2 antibody, p24 antigen with reflex to differentiation (08/02/2024 3:28 PM EDT) [facility] HIV Combo AB/AG Negative Negative LAB CHEMISTRY METHOD 08/02/2024 8:30 PM EDT [facility] Blood Venous blood specimen / Unknown Venipuncture / Unknown 08/02/2024 3:28 PM EDT 08/02/2024 3:31 PM EDT Narrative [facility] - 08/02/2024 8:30 PM EDT This assay is a 4th generation assay allowing for earlier detection of HIV infection by detecting the presence of the HIV-1 p24 antigen as well as the traditional antibodies to HIV type 1 (including group O) and type 2. Use of a 4th generation assay is the current CDC recommendation for HIV screening. [facility]y T[facility] BLOOD ORDERABLES Final Re sult [facility] [address] [place] [address], [place] [phone] * Depression Screening (07/16/2023) [facility] Depression Screening abstracted Historical Provider HEALTH MAINTENANCE Final Result * Cervical Cancer Screening: HPV (04/10/2020) [facility] Cervical Cancer Screening: HPV negative, abstracted Historical Provider HEALTH MAINTENANCE Final Result from Last 3 Months or Most Recently Relevant to Health Maintenance Insurance [employer] [place] [place]
== END 2025-01-07 13:37 | disposition home or self-care (01) ==
LOC: HO.HSM 12:39
PROVIDERS: PCP Internal Medicine; Visit Provider Nurse Practitioner
DX: G43.709 Chronic migraine without aura, not intractable, without status migrainosus (principal); R61 Generalized hyperhidrosis
CPT/HCPCS: 99214